=== PATIENT | female | born 1940 | race Caucasian/White ===

== ENCOUNTER 2018-03-30 21:55 | Inpatient (IN) ==
[2018-03-30] MEDS ORDERED: DILTIAZEM 25 MG/5 ML VIAL IV ONE (22:09)
[2018-03-30] MEDS ORDERED: dilTIAZem Drip 125 MG/125 ML PREMIX IV ONE (22:09)
[2018-03-30] MEDS ORDERED: DILTIAZEM 50 MG/10 ML VIAL IV STA (22:39)
[2018-03-30] MEDS: dilTIAZem Drip 125 MG/125 ML PREMIX IV SCH (22:48)
[2018-03-30 22:56] LABS: Basophils % 0.6 % (0.0-0.8); Eosinophils # 0.1 10*3/uL (0.0-0.87); Eosinophils % 1.7 % (0.00-10.9); Hematocrit 41.2 VOL% (35.7-47.0); Hemoglobin 13.7 GM/DL (12.0-16.0); Immature Granulocytes % 0.5 %; Immature Granulocytes Absolute 0.03 #; Lymphocytes # 2.1 10*3/uL (1.4-4.0); Lymphocytes % 31.6 % (21.3-54.2); Mean Corpuscular HGB Conc 33.3 GM/DL (32-36); Mean Corpuscular Hemoglobin 32 PG (27-34); Mean Corpuscular Volume 94.9 FL (87-102); Mean Platelet Volume 11.8 FL (9.6-12.0); Monocytes # 0.7 10*3/uL (0.11-0.8); Neutrophils # 3.6 10*3/uL (1.4-7.4); Neutrophils % 55.6 % (38.7-73.9); Platelet Count 140 T/CUMM (130-400); Red Blood Count 4.34 MC/CUMM (3.8-5.5); Red Cell Distribution Width 12.5 % (9.3-17.3); White Blood Count 6.5 T/CUMM (4-12)
[2018-03-30 23:37] LABS: Albumin 3.8 G/DL (3.4-5.0); Bilirubin,Total 0.4 MG/DL (0.2-1.0); Calcium 9.1 MG/DL (8.5-10.1); Potassium 3.8 MMOL/L (3.5-5.1); Thyroid Stimulating Hormone 2.73 uIU/ml (0.358-3.74); Total Protein 7.4 G/DL (6.4-8.3)
[2018-03-31] MEDS ORDERED: ACETAMINOPHEN 325 MG TABLET PO PRN (00:54)
[2018-03-31] MEDS ORDERED: MAGNESIUM SULF RIDER 4 GM in PREMIX 1 EACH IV PRN (00:54)
[2018-03-31] MEDS ORDERED: MAGNESIUM SULF RIDER 2 GM in PREMIX 1 EACH IV PRN (00:54)
[2018-03-31] MEDS ORDERED: ONDANSETRON 4 MG/2 ML VIAL IV PRN (00:54)
[2018-03-31] MEDS ORDERED: ENOXAPARIN 80 MG/0.8 ML SYRINGE SUBCUT SCH (01:00)
[2018-03-31 01:41] LABS: Barbiturates Screen,Urine Negative (Negative); Benzodiazepines Screen,Urine Negative (Negative); Cannabinoid Screen,Urine Negative (Negative); Opiate Screen,Urine Negative (Negative); Phencyclidine Screen,Urine Negative (Negative)
[2018-03-31 08:33] LABS: Risk Ratio 1.87
[2018-03-31] MEDS: APIXABAN 5 MG TABLET PO SCH ×2 (09:34→21:47)
[2018-03-31] MEDS: ASPIRIN EC 81 MG TABLET PO SCH (09:34)
[2018-03-31] MEDS: DILTIAZEM 30 MG TABLET PO SCH ×3 (09:34→21:47)
[2018-03-31] MEDS: CALCIUM (CARBONATE)/VITAMIN D 600 MG-400 UNIT TABLET PO SCH (09:34)
[2018-03-31] MEDS: OMEGA 3 ACID ETHYL ESTERS 1 GM CAPSULE PO SCH (12:18)
[2018-03-31] MEDS: CHOLECALCIFEROL 1,000 UNIT TABLET PO SCH (12:19)
[2018-03-31] MEDS: MULTIVITAMIN (OCUVITE) TABLET PO SCH (12:19)
[2018-03-31] MEDS: METOPROLOL SUCCINATE XL 25 MG TABLET PO SCH (14:25)
[2018-03-31] MEDS ORDERED: ATORVASTATIN 20 MG TABLET PO SCH (21:00)
[2018-04-01] MEDS: dilTIAZem Drip 125 MG/125 ML PREMIX IV SCH (00:24)
[2018-04-01 06:16] LABS: Basophils # 0.1 10*3/uL (0.0-0.2); Basophils % 0.8 % (0.0-0.8); Eosinophils # 0.1 10*3/uL (0.0-0.87); Eosinophils % 1.7 % (0.00-10.9); Hematocrit 42.8 VOL% (35.7-47.0); Immature Granulocytes % 0.3 %; Immature Granulocytes Absolute 0.02 #; Lymphocytes # 2.6 10*3/uL (1.4-4.0); Lymphocytes % 40.4 % (21.3-54.2); Mean Corpuscular HGB Conc 32.7 GM/DL (32-36); Mean Corpuscular Hemoglobin 32 PG (27-34); Mean Corpuscular Volume 97.7 FL (87-102); Monocytes # 0.7 10*3/uL (0.11-0.8); Monocytes % 10.3 % (1.7-12.7); Neutrophils % 46.5 % (38.7-73.9); Platelet Count 133 T/CUMM (130-400); Red Blood Count 4.38 MC/CUMM (3.8-5.5); Red Cell Distribution Width 12.7 % (9.3-17.3); White Blood Count 6.3 T/CUMM (4-12)
[2018-04-01 06:33] LABS: Calcium 9.1 MG/DL (8.5-10.1); Osmolality,Calculated 279.4 MOS/KG (273-304); Potassium 3.7 MMOL/L (3.5-5.1)
[2018-04-01] MEDS ORDERED: POTASSIUM CHLORIDE 20 MEQ TABLET PO ONE (09:41)
[2018-04-01] MEDS: CALCIUM (CARBONATE)/VITAMIN D 600 MG-400 UNIT TABLET PO SCH (09:48)
[2018-04-01] MEDS: ASPIRIN EC 81 MG TABLET PO SCH (09:48)
[2018-04-01] MEDS: DILTIAZEM 30 MG TABLET PO SCH (09:48)
[2018-04-01] MEDS: APIXABAN 5 MG TABLET PO SCH (09:48)
[2018-04-01] MEDS: METOPROLOL SUCCINATE XL 25 MG TABLET PO SCH (09:48)
[2018-04-01] MEDS ORDERED: MAGNESIUM OXIDE 400 MG TABLET PO SCH (10:00)
[2018-04-01] MEDS: OMEGA 3 ACID ETHYL ESTERS 1 GM CAPSULE PO SCH (11:45)
[2018-04-01] MEDS: MULTIVITAMIN (OCUVITE) TABLET PO SCH (11:45)
[2018-04-01] MEDS: CHOLECALCIFEROL 1,000 UNIT TABLET PO SCH (11:45)
[2018-04-01 15:52] VITALS: BP 142/74
[2018-04-01] MEDS ORDERED: ASCORBIC ACID 500 MG TABLET PO SCH (21:00)
[2018-04-02] MEDS ORDERED: DILTIAZEM CD 120 MG CAPSULE PO SCH (09:00)
== END 2018-04-01 17:00 | disposition home or self-care (01) | DRG 309 ==
LOC: N.ED 21:55 → N.EDINP 03-31 00:07 → N.TELEN 03-31 00:38
PROVIDERS: ADMIT Internal Medicine Interventional Cardiology; ATTEND Internal Medicine Interventional Cardiology